=== PATIENT | male | born 1960 | race Caucasian/White ===

== ENCOUNTER 2017-12-24 12:32 | Emergency (ER) | payer SELFPAY ==
[2017-12-24] MEDS: KETOROLAC 60 MG INJ IM (16:15)
[2017-12-24] MEDS: METHOCARBAMOL 750 MG TAB PO (16:18)
[2017-12-24] MEDS: LIDOCAINE 5% PATCH TD (17:53)
== END 2017-12-24 18:23 | disposition home or self-care (01) ==
LOC: FTE 12:32
DX: M62.830 Muscle spasm of back (principal); R40.2412 Glasgow coma scale score 13-15, at arrival to emergency department
CPT/HCPCS: 72050; 72072; 72100; 96372; 99284-25